=== PATIENT | female | born 1975 | race Caucasian/White ===

== ENCOUNTER 2016-10-12 14:12 | Inpatient (IN) | payer OTHER, MEDICAID ==
[2016-10-12 19:37] LABS: BASOPHILS % (AUTO) 0.6 % (0.2-1.0); EOSINOPHILS # (AUTO) 0.1 x10^3/uL (0.0-0.2); EOSINOPHILS % (AUTO) 0.8 % (0.9-2.9); HEMATOCRIT 40.9 % (36.0-47.0); HEMOGLOBIN 14.2 g/dL (12.0-16.0); LYMPHOCYTES # (AUTO) 2.7 X10^3/uL (1.3-2.9); MEAN CORPUSCULAR HGB CONC 34.6 g/dL (33.0-35.0); MEAN CORPUSCULAR VOLUME 98.2 fL (80.0-100.0); MEAN PLATELET VOLUME 8.6 fL (7.4-11.0); MONOCYTES # (AUTO) 0.5 x10^3/uL (0.3-0.8); MONOCYTES % (AUTO) 6.1 % (0.0-13.0); NEUTROPHILS # (AUTO) 4.4 x10^3/uL (2.2-4.8); NEUTROPHILS % (AUTO) 57.5 % (42.0-75.0); PLATELET COUNT 226 X10^3/uL (150.0-450.0); RED BLOOD COUNT 4.16 X10^6/uL (3.5-5.4); RED CELL DISTRIBUTION WIDTH 14.4 % (11.6-16.5); WHITE BLOOD COUNT 7.6 X10^3/uL (3.6-10.0)
[2016-10-12 20:00] LABS: ALANINE AMINOTRANSFERASE 29 Units/L (12-78); ALBUMIN 3.5 g/dL (3.4-5.0); ALKALINE PHOSPHATASE 115 Units/L (46-116); ASPARTATE AMINO TRANSFERASE 10 Units/L (15-37); BLOOD UREA NITROGEN 13 mg/dL (7-18); CALCIUM 8.9 mg/dL (8.5-10.1); CARBON DIOXIDE 29.9 mmol/L (21-32); CHLORIDE 108 mmol/L (98-107); CKMB % 1.8 % (<4); COR NA(FOR HYPERGLY) 145 mmol/L (136-145); CREATINE KINASE 55 Units/L (26-192); CREATINE KINASE MB < 1.0 ng/mL (0-4.0); CREATININE 0.82 mg/dL (0.55-1.02); GLUCOSE 121 mg/dL (65-99); SODIUM 144 mmol/L (136-145); TOTAL PROTEIN 7.3 g/dL (6.4-8.2); TROPONIN I < 0.02 ng/mL (0-1.5); eGFR BLACK RACES > 60 (>60); eGFR NON BLACK RACES > 60 (>60)
[2016-10-12 20:45] VITALS: BMI 46.0
[2016-10-12 20:54] LABS: BILIRUBIN,URINE NEGATIVE (NEGATIVE); BLOOD/HEMOGLOBIN,URINE NEGATIVE (NEGATIVE); GLUCOSE, URINE NEGATIVE (NEGATIVE); KETONES,URINE NEGATIVE (NEGATIVE); LEUKOCYTE ESTERASE ,URINE NEGATIVE (NEGATIVE); NITRITES,URINE NEGATIVE (NEGATIVE); PROTEIN,URINE NEGATIVE (NEGATIVE); UROBILINOGEN,URINE NORMAL (NORMAL)
[2016-10-12 21:28] LABS: AMORPHOUS SEDIMENT,UR TRACE /HPF (NEGATIVE); APPEARANCE,URINE CLEAR (CLEAR); BACTERIA,URINE TRACE /HPF (NEGATIVE); COLOR,URINE YELLOW (YELLOW); RBC,URINE 0-1 /HPF (NEGATIVE); SQUAMOUS EPITHELIAL CELL,UR FEW /HPF (NEGATIVE)
[2016-10-12] MEDS: DILAUDID INJ IVP PRN (21:55)
[2016-10-12] MEDS ORDERED: SOMA TAB 350 MG PO PRN (22:11)
[2016-10-12] MEDS ORDERED: NITROSTAT SL PRN (22:11)
[2016-10-12] MEDS ORDERED: AMBIEN PO PRN (22:11)
[2016-10-12] MEDS ORDERED: VOLTAREN 1 % GEL MULTI DOSE TUBE TOP PRN (22:11)
[2016-10-12] MEDS ORDERED: LEVETIRACETAM 750 MG PO SCH (22:15)
[2016-10-12] MEDS ORDERED: DIVALPROEX SODIUM 500 MG PO SCH (22:15)
--- NOTE | 2016-10-12 22:21 | DR.H&P ---
H&P - History & Physical for Day of: H&P Date: 10/12/16 - Chief Complaint Chief Complaint: Swelling, Weight gain 8lbs in 1 week, Abd pain, Unable to void. - Allergies Allergies/Adverse Reactions: Allergies Allergy/AdvReac Type Severity Reaction Status Date / Time MS Davisithromycin Allergy Verified 10/12/16 18:53 - History of Present Illness History of Present Illness: The patient is a 41yo WF who presents to [facility] with complaint of increasing edema and having not voided since Wednesday. States she has gained 8lbs since last week when she was in the office. States she has been taking Lasix 60mg daily for last 2 days. States she is not drinking much. States that she went to ED at [facility] Wednesday morning after having fell down the doorsteps at home after having either a seizure or fainting. States she is having abdominal pain and is tender in lower abdomen. Does complain of chest discomfort and is to be scheduled for an EGD. - Past Medical History Past Medical History: Anxiety, Arthritis, CHF, Coronary Artery Disease, Dyslipidemia, GERD, Hyperthyroidism, Seizures Additional Medical History: Multiple DVTs - Past Surgical History Surgical History: Cholecystectomy Additional Surgical History: Cardiac Catherization - Family History Family Medical History: Cancer, [place], Heart Failure, Hypertension - Social History Does patient currently use any type of tobacco product: Yes Have you used tobacco products in the last 12 months: Yes Type of Tobacco Use: Cigarettes Alcohol Use: None Drug Use: Prescription Drugs - Medications Home Medications: Diclofenac Sodium (Topical) [Voltaren] 1 % TOP TID PRN 10/12/16 [History Confirmed 10/12/16] Nitroglycerin Sublingual [NITROSTAT SUBLING TAB 0.4 MG *] 0.4 mg SL PRN PRN [History Confirmed 10/12/16] Ranitidine HCl [Zantac] 300 mg PO BID 10/12/16 [History Confirmed 10/12/16] Rivaroxaban [Xarelto] 20 mg PO DAILY 10/12/16 [History Confirmed 10/12/16] - Review of Systems Constitutional: Weakness, Malaise Eyes: No Symptoms Reported ENT: No Symptoms Reported Respiratory: Shortness of Breath Cardiovascular: Chest Pain, Edema Gastrointestinal: Abdominal Pain Genitourinary: Dysuria, Retention Musculoskeletal: Arm Pain, Back Pain, Leg Pain, Neck Pain Skin: No Symptoms Reported Neurological: No Symptoms Reported - Physical Exam Vital Signs: Temperature 98.2 F Pulse Rate [Right Brachial] 97 Blood Pressure [Left Arm] 130/63 Blood Pressure [Right Arm] 136/66 Blood Pressure 130/63 O2 Sat by Pulse Oximetry 95 Oriented: Normal Eyes: Normal Ear: Normal Nose: Normal Throat: Normal Respiratory: Clear Throughout Cardiovascular: Normal, Edema (2+ generalized edema) : Dysuria Auscultation: Bowel Sounds: Normal Palpation: Normal Tenderness: Suprapubic, Moderate Skin: Normal, Ecchymosis (left hip) Musculoskeletal: Leg, Back:Lumbar, Tender Psychiatric: Normal Mood Description: Calm Affect: Normal Speech Pattern: Clear - Assessment/Plan (1) Edema Qualifiers: Edema type: E Malnutrition edema type: M Trimester: T Status: Acute Plan: CXR, Lasix IV, Monitor I&O (2) Urinary retention Status: Acute Plan: Noriega, UA, UA C&S (3) Chest discomfort Status: Acute Plan: Cardiac enzymes (4) Abdominal pain Qualifiers: Abdominal location: lower abdomen, unspecified Qualified Code(s): R10.30 - Lower abdominal pain, unspecified Status: Acute Plan: Noriega cath, Labs (5) Hypertension Qualifiers: Hypertension type: essential hypertension Qualified Code(s): I10 - Essential (primary) hypertension Status: Chronic Plan: Monitor BP, Meds as indicated (6) Vertigo Status: Acute Plan: CT Head
--- NOTE | 2016-10-12 22:38 | CT ---
HISTORY: Syncope with head injury Study: CT brain without contrast Comparison: None Technique: Multiple axial images of the brain were obtained from the skull base to the vertex witho ut administration of IV contrast. AEC was utilized. Findings: No acute intraparenchymal hemorrhage or mass can be identified. No extra-axial fluid collections ar e seen. No alteration in the attenuation of the brain parenchyma can be identified to suggest acute or subacute ischemic change. The ventricular system is symmetric and nondilated. The extracranial structures are grossly unremarkable. IMPRESSION: No acute intracranial process can be identified. Reported By:
--- NOTE | 2016-10-12 22:39 | RAD ---
HISTORY: Syncope, edema Study: Single-view chest Comparison: February 11, 2016 Findings: The trachea is midline. The cardiac silhouette is unremarkable. The lungs are clear without focal mass or consolidation. There is no effusion or pneumothorax. The bony thorax is grossly unremarkab le. IMPRESSION: No acute cardiopulmonary disease. Reported By:
[2016-10-12] MEDS: LASIX IVP SCH (23:16)
[2016-10-12] MEDS: DEPAKOTE ER PO SCH (23:17)
[2016-10-12] MEDS: PRAVACHOL PO SCH (23:17)
[2016-10-12] MEDS: DILANTIN CAP 100 MG EXT REL PO SCH (23:17)
[2016-10-12] MEDS: KEPPRA TAB 500 MG PO SCH (23:17)
[2016-10-12] MEDS: LOPRESSOR TAB 50 MG PO SCH (23:17)
[2016-10-13 01:12] LABS: CKMB % 1.1 % (<4); CREATINE KINASE 93 Units/L (26-192); CREATINE KINASE MB < 1.0 ng/mL (0-4.0); TROPONIN I < 0.02 ng/mL (0-1.5)
[2016-10-13] MEDS: DILAUDID INJ IVP PRN ×4 (03:27→19:23)
[2016-10-13] MEDS: PHENERGAN TAB 25 MG PO PRN ×4 (03:27→20:16)
[2016-10-13] MEDS: DILANTIN CAP 100 MG EXT REL PO SCH ×3 (05:33→22:11)
[2016-10-13] MEDS: KLONOPIN TAB 1 MG PO SCH ×3 (05:33→22:12)
[2016-10-13] MEDS ORDERED: K-LYTE EFFERVESCENT PO PRN (05:49)
[2016-10-13] MEDS ORDERED: K-DUR TAB 20 MEQ PO PRN (05:49)
[2016-10-13] MEDS ORDERED: POTASSIUM CHLORIDE LIQ 20 MEQ UDC PO PRN (05:49)
[2016-10-13] MEDS ORDERED: K-RIDER 10 MEQ/NS 100 ML 10 MEQ/100 ML BAG IV PRN (05:49)
[2016-10-13] MEDS: CARAFATE PO SCH ×4 (08:27→20:15)
[2016-10-13] MEDS: PriLOSEC PO SCH (08:28)
[2016-10-13] MEDS: TOPAMAX PO SCH ×2 (08:28→20:18)
[2016-10-13] MEDS: PRAVACHOL PO SCH (08:29)
[2016-10-13] MEDS: XARELTO PO SCH (08:29)
[2016-10-13] MEDS: NEURONTIN TAB 600 MG PO SCH ×4 (08:29→20:17)
[2016-10-13] MEDS: ESTRACE PO SCH (08:29)
[2016-10-13] MEDS: KEPPRA TAB 500 MG PO SCH ×2 (08:30→20:15)
[2016-10-13] MEDS: DEPAKOTE ER PO SCH ×2 (08:31→20:17)
[2016-10-13] MEDS: LOPRESSOR TAB 50 MG PO SCH ×2 (08:31→20:19)
[2016-10-13] MEDS: CLARITIN PO SCH (08:31)
[2016-10-13] MEDS: COREG TAB 25 MG PO SCH ×2 (08:31→20:18)
[2016-10-13] MEDS: LASIX IVP SCH ×2 (08:33→20:19)
[2016-10-13 08:38] LABS: CKMB % 1.4 % (<4); CREATINE KINASE 72 Units/L (26-192); CREATINE KINASE MB < 1.0 ng/mL (0-4.0); TROPONIN I < 0.02 ng/mL (0-1.5)
[2016-10-13] MEDS ORDERED: TOPIRAMATE PO SCH (09:00)
[2016-10-13] MEDS ORDERED: PATIENT'S HOME MEDICATION (Rivaroxaban [Xarelto] 20 MG) PO SCH (09:00)
[2016-10-13] MEDS ORDERED: OMEPRAZOLE PO SCH (09:00)
[2016-10-13] MEDS ORDERED: PATIENT'S HOME MEDICATION (Estradiol [Estrace] 2 MG) PO SCH (09:00)
--- NOTE | 2016-10-13 14:11 | PCM.PROG ---
Progress Note - Progress Note for Day of Date: 10/13/16 - Subjective Subjective: 41WF ADMITTED ONE DAY AGO WITH SEVERE URINARY RETENTION REQUIRING SÁNCHEZ CATH. PT HAS PMH OF L SPINE DDD WITH SURGICAL REPAIR OF DISK HERNIATION.PT CO LOWER BACK PAIN AND LOWER EXTREMITY WEAKNESS SINCE A FALL PRIOR WEEKEND. PLAN TO OBTAIN MRI L SPINE W/O CAUDA EQUINA, WILL CONTINUE HOME MEDS, AM LABS AND BP CONTROL - Past Medical Family Social History Past Med/Fam/Surg Hx: No changes since H&P Allergies: Allergies MS Clarithromycin Allergy (Verified 10/12/16 18:53) - Review of Systems ROS: No change since H&P - Vital Signs and I&O's Vital Signs: Temperature 97.8 F Pulse Rate [Left Brachial] 64 Pulse Rate [Right Brachial] 65 Respiratory Rate 20 Blood Pressure [Left Arm] 93/58 Blood Pressure [Right Arm] 106/61 Blood Pressure 130/63 O2 Sat by Pulse Oximetry 98 Intake and Output: Intake & Output 10/11/16 10/12/16 10/13/16 10/14/16 11:59 11:59 11:59 11:59 Intake Total 20 Output Total 1000 Balance -980 - Physical Exam Oriented: Normal Eyes: Normal Ear: Normal Nose: Normal Throat: Normal Respiratory: Diminished Cardiovascular: Normal, Edema (2+ generalized edema) : Dysuria Auscultation: Bowel Sounds: Normal Tenderness: Suprapubic, Moderate Skin: Normal, Ecchymosis (left hip) Musculoskeletal: Leg, Back:Lumbar, Tender (CERVICAL SPINE AND LUMBAR SPINE TENDERNESS) Psychiatric: Normal Mood Description: Calm Affect: Normal Speech Pattern: Clear, Appropriate - Laboratory and Diagnostics Result Diagrams: 10/12/16 19:10 10/12/16 19:10 Labs: 10/12/16 20:43 Urine,Clean Catch Urine Culture - Preliminary Laboratory WBC 7.6 X10^3/uL (3.6-10.0) 10/12/16 19:10 RBC 4.16 X10^6/uL (3.5-5.4) 10/12/16 19:10 Hgb 14.2 g/dL (12.0-16.0) 10/12/16 19:10 Hct 40.9 % (36.0-47.0) 10/12/16 19:10 MCV 98.2 fL (80.0-100.0) 10/12/16 19:10 MCH 34.0 pg (27.0-34.0) 10/12/16 19:10 MCHC 34.6 g/dL (33.0-35.0) 10/12/16 19:10 RDW 14.4 % (11.6-16.5) 10/12/16 19:10 Plt Count 226 X10^3/uL (150.0-450.0) 10/12/16 19:10 MPV 8.6 fL (7.4-11.0) 10/12/16 19:10 Neut % 57.5 % (42.0-75.0) 10/12/16 19:10 Lymph % 35.0 % (21.0-51.0) 10/12/16 19:10 [place] % 6.1 % (0.0-13.0) 10/12/16 19:10 Eos % 0.8 % (0.9-2.9) L 10/12/16 19:10 Baso % 0.6 % (0.2-1.0) 10/12/16 19:10 Neut # 4.4 x10^3/uL (2.2-4.8) 10/12/16 19:10 Lymph # 2.7 X10^3/uL (1.3-2.9) 10/12/16 19:10 [place] # 0.5 x10^3/uL (0.3-0.8) 10/12/16 19:10 Eos # 0.1 x10^3/uL (0.0-0.2) 10/12/16 19:10 Baso # 0.0 X10^3/uL (0.0-0.1) 10/12/16 19:10 Absolute Nucleated RBC 0.2 /100WBC 10/12/16 19:10 Sodium 144 mmol/L (136-145) 10/12/16 19:10 Corrected Sodium 145 mmol/L (136-145) 10/12/16 19:10 Potassium 3.2 mmol/L (3.5-5.1) L 10/12/16 19:10 Chloride 108 mmol/L (98-107) H 10/12/16 19:10 Carbon Dioxide 29.9 mmol/L (21-32) 10/12/16 19:10 BUN 13 mg/dL (7-18) 10/12/16 19:10 Creatinine 0.82 mg/dL (0.55-1.02) 10/12/16 19:10 Est GFR (MDRD) Af Amer > 60 (>60) 10/12/16 19:10 Est GFR (MDRD) Non-Af > 60 (>60) 10/12/16 19:10 Glucose 121 mg/dL (65-99) H 10/12/16 19:10 Calcium 8.9 mg/dL (8.5-10.1) 10/12/16 19:10 Corrected Calcium TNP 10/12/16 19:10 Total Bilirubin 0.20 mg/dL (0.2-1.0) 10/12/16 19:10 AST 10 Units/L (15-37) L 10/12/16 19:10 ALT 29 Units/L (12-78) 10/12/16 19:10 Alkaline Phosphatase 115 Units/L (46-116) 10/12/16 19:10 Creatine Kinase 72 Units/L (26-192) 10/13/16 07:30 CK-MB (CK-2) < 1.0 ng/mL (0-4.0) 10/13/16 07:30 CK/CKMB % Calc 1.4 % (<4) 10/13/16 07:30 Troponin I < 0.02 ng/mL (0-1.5) 10/13/16 07:30 Total Protein 7.3 g/dL (6.4-8.2) 10/12/16 19:10 Albumin 3.5 g/dL (3.4-5.0) 10/12/16 19:10 Globulin 3.8 g/dL (2.5-4.5) 10/12/16 19:10 Albumin/Globulin Ratio 0.9 Ratio (1.1-2.1) L 10/12/16 19:10 Specimen Type Catherized urine 10/12/16 20:43 Urine Color Yellow (YELLOW) 10/12/16 20:43 Urine Appearance Clear (CLEAR) 10/12/16 20:43 Urine pH 6.0 (5.0 - 8.0) 10/12/16 20:43 Ur Specific [place] 1.020 (1.000-1.030) 10/12/16 20:43 Urine Protein Negative (NEGATIVE) 10/12/16 20:43 Urine Glucose (UA) Negative (NEGATIVE) 10/12/16 20:43 Urine Ketones Negative (NEGATIVE) 10/12/16 20:43 Urine Occult Blood Negative (NEGATIVE) 10/12/16 20:43 Urine Nitrite Negative (NEGATIVE) 10/12/16 20:43 Urine Bilirubin Negative (NEGATIVE) 10/12/16 20:43 Urine Urobilinogen Normal (NORMAL) 10/12/16 20:43 Ur Leukocyte Esterase Negative (NEGATIVE) 10/12/16 20:43 Urine RBC 0-1 /HPF (NEGATIVE) 10/12/16 20:43 Urine WBC 0-1 /HPF (NEGATIVE) 10/12/16 20:43 Ur Squamous Epith Cells Few /HPF (NEGATIVE) 10/12/16 20:43 Amorphous Sediment Trace /HPF (NEGATIVE) 10/12/16 20:43 Urine Bacteria Trace /HPF (NEGATIVE) 10/12/16 20:43 Ur Culture Indicated? No/not indicated 10/12/16 20:43 - Plan (1) Urinary retention Status: Acute Plan: Sánchez, UA, UA C&S. I & O'S (2) Degenerative arthritis of lumbar spine Status: Chronic Qualifiers: Spinal osteoarthritis complication: with radiculopathy Qualified Code(s): M47.26 - Other spondylosis with radiculopathy, lumbar region Plan: PAIN CONTROL, MRI PENDING (3) Cervical spine degeneration Status: Acute Qualifiers: Spinal osteoarthritis complication: S (4) Edema Status: Acute Qualifiers: Edema type: E Malnutrition edema type: M Trimester: T Plan: CXR, Lasix IV, Monitor I&O (5) Uncontrolled hypertension Status: Acute (6) GERD (gastroesophageal reflux disease) Status: Chronic Qualifiers: Esophagitis presence: E (7) History of [place] (myocardial infarction) Status: Chronic (8) Hypertension Status: Chronic Qualifiers: Hypertension type: essential hypertension Qualified Code(s): I10 - Essential (primary) hypertension Plan: Monitor BP, Meds as indicated (9) Seizure Status: Chronic
[2016-10-13] MEDS: ELAVIL PO SCH (20:15)
[2016-10-13] MEDS ORDERED: AMITRIPTYLINE HCL 100 MG PO SCH (21:00)
[2016-10-14] MEDS: KLONOPIN TAB 1 MG PO SCH ×3 (05:21→21:05)
[2016-10-14] MEDS: DILANTIN CAP 100 MG EXT REL PO SCH ×3 (05:21→21:05)
[2016-10-14] MEDS: PHENERGAN TAB 25 MG PO PRN (05:21)
[2016-10-14] MEDS: DILAUDID INJ IVP PRN ×4 (05:23→21:05)
[2016-10-14 06:14] LABS: BASOPHILS % (AUTO) 0.4 % (0.2-1.0); EOSINOPHILS # (AUTO) 0.1 x10^3/uL (0.0-0.2); EOSINOPHILS % (AUTO) 0.9 % (0.9-2.9); HEMATOCRIT 41.4 % (36.0-47.0); HEMOGLOBIN 14.3 g/dL (12.0-16.0); LYMPHOCYTES % (AUTO) 27.6 % (21.0-51.0); MEAN CORPUSCULAR HEMOGLOBIN 34.1 pg (27.0-34.0); MEAN CORPUSCULAR HGB CONC 34.6 g/dL (33.0-35.0); MEAN CORPUSCULAR VOLUME 98.6 fL (80.0-100.0); MEAN PLATELET VOLUME 8.7 fL (7.4-11.0); MONOCYTES # (AUTO) 0.5 x10^3/uL (0.3-0.8); MONOCYTES % (AUTO) 6.7 % (0.0-13.0); NEUTROPHILS # (AUTO) 4.6 x10^3/uL (2.2-4.8); NEUTROPHILS % (AUTO) 64.4 % (42.0-75.0); PLATELET COUNT 198 X10^3/uL (150.0-450.0); RED CELL DISTRIBUTION WIDTH 14.4 % (11.6-16.5); WHITE BLOOD COUNT 7.2 X10^3/uL (3.6-10.0)
[2016-10-14 06:26] LABS: ALANINE AMINOTRANSFERASE 27 Units/L (12-78); ALBUMIN 3.4 g/dL (3.4-5.0); ALKALINE PHOSPHATASE 118 Units/L (46-116); ASPARTATE AMINO TRANSFERASE 15 Units/L (15-37); BLOOD UREA NITROGEN 16 mg/dL (7-18); CALCIUM 8.6 mg/dL (8.5-10.1); CARBON DIOXIDE 26.6 mmol/L (21-32); CHLORIDE 107 mmol/L (98-107); CREATININE 0.77 mg/dL (0.55-1.02); GLUCOSE 99 mg/dL (65-99); SODIUM 143 mmol/L (136-145); TOTAL PROTEIN 7.3 g/dL (6.4-8.2); eGFR BLACK RACES > 60 (>60); eGFR NON BLACK RACES > 60 (>60)
[2016-10-14] MEDS: PRAVACHOL PO SCH (09:25)
[2016-10-14] MEDS: TOPAMAX PO SCH ×2 (09:25→21:04)
[2016-10-14] MEDS: LOPRESSOR TAB 50 MG PO SCH ×2 (09:27→21:04)
[2016-10-14] MEDS: ESTRACE PO SCH (09:27)
[2016-10-14] MEDS: KEPPRA TAB 500 MG PO SCH ×2 (09:27→21:03)
[2016-10-14] MEDS: COREG TAB 25 MG PO SCH ×2 (09:28→21:02)
[2016-10-14] MEDS: PriLOSEC PO SCH (09:29)
[2016-10-14] MEDS: CLARITIN PO SCH (09:29)
[2016-10-14] MEDS: XARELTO PO SCH (09:29)
[2016-10-14] MEDS: DEPAKOTE ER PO SCH ×2 (09:30→21:03)
[2016-10-14] MEDS: NEURONTIN TAB 600 MG PO SCH ×4 (09:30→21:04)
[2016-10-14] MEDS: CARAFATE PO SCH ×4 (09:30→21:02)
[2016-10-14] MEDS: LASIX IVP SCH ×2 (09:30→21:04)
--- NOTE | 2016-10-14 09:59 | MRI ---
HISTORY: Low back pain, bilateral lower extremity weakness Study: MRI lumbar spine without contrast Comparison: February 13, 2016 Technique: Multiplanar multi-sequence MRI of the lumbar spine was obtained. Sagittal T1, sagittal T 2, and stir weighted images, axial T1, and axial T2 images were obtained. Findings: The patient is status post L4-5 posterior fusion with hardware present. The hardware creates some ar tifact. There is a disc spacer at L4-5. The lumbar spine demonstrates normal alignment with the expe cted signal characteristics of the bone marrow. The conus of the cord terminates normally. T12 -- L1: No evidence for compressive disc disease. The neural foramina are patent. The joints are normal. L1 -- L2: No evidence for compressive disc disease. The neural foramina are patent. The joints are n ormal. L2 -- L3: No evidence for compressive disc disease. The neural foramina are patent. Mild bilateral f acet arthropathy is present. L3 -- L4: Concentric disk bulging effaces the thecal sac and contributes along with bilateral facet arthropathy to mild lateral recess narrowing bilaterally. L4 -- L5: Status post fusion with hardware present. The neural foramina are patent. L5 -- S1: Minimal broad-based disk bulging extends slightly more to the right than the left where it abuts and causes minimal displacement of the right S1 nerve root and mild lateral recess narrowing on the right. The left neural foramen is patent. Mild facet arthropathy is present. IMPRESSION: As above Reported By:
--- NOTE | 2016-10-14 13:43 | PCM.PROG ---
Addendum entered and electronically signed by LUÍS APODACA 10/14/16 13:55: CORRECTION TO PRIOR ENTRY PLAN TO CT ABD/PELVIS STOOL STUDIES NO US Original Note: Progress Note - Progress Note for Day of Date: 10/14/16 - Subjective Subjective: 41WF ADMITTED 10/12/2016 WITH SEVERE URINARY RETENTION REQUIRING SÁNCHEZ CATH. PT HAS PMH OF L SPINE DDD WITH SURGICAL REPAIR OF DISK HERNIATION.PT CO LOWER BACK PAIN AND LOWER EXTREMITY WEAKNESS SINCE A FALL PRIOR WEEKEND. PT HAD MRI C AND L SPINE, C SPINE REPORT PENDING. DISCUSSED FINDING WITH L SPINE MRI WITH PT AND SPOUSE. PT HAS NEW CO UPPER ABDOMINAL CRAMPING. PT HAD CT SCAN ABD/PELVIS ON ADMISSION. PT SÁNCHEZ D/C'S THIS AM AND PT HAS NOT REPORTED VOIDING SINCE. PLAN TO US Q AM, NPO AFTER MIDNIGHT, PPI THERAPY AND NAUSEA CONTROL, REINSERT SÁNCHEZ NEEDED FOR CONTINUED RETENTION. PT VERY BELLIGERENT WITH MEDICAL AND NURSING STAFF, SCREAMING STATING SHE "WAS LEAVING". PT INFORMED BY NURSE SHE WAS NOT BEING DISCHARGED AT THIS TIME SHE WOULD HAVE TO SIGN AN AMA. ENCOURAGED PT TO CONTINUE WITH MEDICAL THERAPY, WILL CONTINUE CURRENT PLAN OF CARE, DISCUSSED NEED FOR FUTURE EDG DUE TO GASTRIC PAIN - Past Medical Family Social History Past Med/Fam/Surg Hx: No changes since H&P Allergies: Allergies MS Clarithromycin Allergy (Verified 10/12/16 18:53) - Review of Systems ROS: Changes notes (describe) (UPPER ABDOMINAL PAIN, CRAMPING) - Vital Signs and I&O's Vital Signs: Temperature 98.1 F Pulse Rate [Left Brachial] 78 Pulse Rate [Right Brachial] 65 Respiratory Rate 16 Blood Pressure [Left Arm] 101/66 Blood Pressure [Right Arm] 106/61 Blood Pressure 130/63 O2 Sat by Pulse Oximetry 93 Intake and Output: Intake & Output 10/12/16 10/13/16 10/14/16 10/15/16 11:59 11:59 11:59 11:59 Intake Total 20 600 Output Total 1000 2475 Balance -877 -5156 - Physical Exam Oriented: Normal Eyes: Normal Ear: Normal Nose: Normal Throat: Normal Respiratory: Diminished Cardiovascular: Normal, Edema (BILATERAL TRACE EDEMA) : Dysuria Auscultation: Bowel Sounds: Normal Tenderness: Diffuse Skin: Normal, Ecchymosis (left hip) Musculoskeletal: Leg, Back:Lumbar, Tender (CERVICAL SPINE AND LUMBAR SPINE TENDERNESS) Psychiatric: Normal Mood Description: Calm Affect: Normal Speech Pattern: Clear, Appropriate - Laboratory and Diagnostics Result Diagrams: 10/14/16 05:30 10/14/16 05:30 Labs: 10/12/16 19:40 Blood Blood Culture - Preliminary 10/12/16 19:10 Blood Blood Culture - Preliminary 10/12/16 20:43 Urine,Clean Catch Urine Culture - Final Laboratory WBC 7.2 X10^3/uL (3.6-10.0) 10/14/16 05:30 RBC 4.20 X10^6/uL (3.5-5.4) 10/14/16 05:30 Hgb 14.3 g/dL (12.0-16.0) 10/14/16 05:30 Hct 41.4 % (36.0-47.0) 10/14/16 05:30 MCV 98.6 fL (80.0-100.0) 10/14/16 05:30 MCH 34.1 pg (27.0-34.0) H 10/14/16 05:30 MCHC 34.6 g/dL (33.0-35.0) 10/14/16 05:30 RDW 14.4 % (11.6-16.5) 10/14/16 05:30 Plt Count 198 X10^3/uL (150.0-450.0) 10/14/16 05:30 MPV 8.7 fL (7.4-11.0) 10/14/16 05:30 Neut % 64.4 % (42.0-75.0) 10/14/16 05:30 Lymph % 27.6 % (21.0-51.0) 10/14/16 05:30 [place] % 6.7 % (0.0-13.0) 10/14/16 05:30 Eos % 0.9 % (0.9-2.9) 10/14/16 05:30 Baso % 0.4 % (0.2-1.0) 10/14/16 05:30 Neut # 4.6 x10^3/uL (2.2-4.8) 10/14/16 05:30 Lymph # 2.0 X10^3/uL (1.3-2.9) 10/14/16 05:30 [place] # 0.5 x10^3/uL (0.3-0.8) 10/14/16 05:30 Eos # 0.1 x10^3/uL (0.0-0.2) 10/14/16 05:30 Baso # 0.0 X10^3/uL (0.0-0.1) 10/14/16 05:30 Absolute Nucleated RBC 0.1 /100WBC 10/14/16 05:30 Sodium 143 mmol/L (136-145) 10/14/16 05:30 Corrected Sodium TNP 10/14/16 05:30 Potassium 4.4 mmol/L (3.5-5.1) 10/14/16 05:30 Chloride 107 mmol/L (98-107) 10/14/16 05:30 Carbon Dioxide 26.6 mmol/L (21-32) 10/14/16 05:30 BUN 16 mg/dL (7-18) 10/14/16 05:30 Creatinine 0.77 mg/dL (0.55-1.02) 10/14/16 05:30 Est GFR (MDRD) Af Amer > 60 (>60) 10/14/16 05:30 Est GFR (MDRD) Non-Af > 60 (>60) 10/14/16 05:30 Glucose 99 mg/dL (65-99) 10/14/16 05:30 Calcium 8.6 mg/dL (8.5-10.1) 10/14/16 05:30 Corrected Calcium TNP 10/14/16 05:30 Total Bilirubin 0.20 mg/dL (0.2-1.0) 10/14/16 05:30 AST 15 Units/L (15-37) 10/14/16 05:30 ALT 27 Units/L (12-78) 10/14/16 05:30 Alkaline Phosphatase 118 Units/L (46-116) H 10/14/16 05:30 Creatine Kinase 72 Units/L (26-192) 10/13/16 07:30 CK-MB (CK-2) < 1.0 ng/mL (0-4.0) 10/13/16 07:30 CK/CKMB % Calc 1.4 % (<4) 10/13/16 07:30 Troponin I < 0.02 ng/mL (0-1.5) 10/13/16 07:30 Total Protein 7.3 g/dL (6.4-8.2) 10/14/16 05:30 Albumin 3.4 g/dL (3.4-5.0) 10/14/16 05:30 Globulin 3.9 g/dL (2.5-4.5) 10/14/16 05:30 Albumin/Globulin Ratio 0.9 Ratio (1.1-2.1) L 10/14/16 05:30 Specimen Type Catherized urine 10/12/16 20:43 Urine Color Yellow (YELLOW) 10/12/16 20:43 Urine Appearance Clear (CLEAR) 10/12/16 20:43 Urine pH 6.0 (5.0 - 8.0) 10/12/16 20:43 Ur Specific [place] 1.020 (1.000-1.030) 10/12/16 20:43 Urine Protein Negative (NEGATIVE) 10/12/16 20:43 Urine Glucose (UA) Negative (NEGATIVE) 10/12/16 20:43 Urine Ketones Negative (NEGATIVE) 10/12/16 20:43 Urine Occult Blood Negative (NEGATIVE) 10/12/16 20:43 Urine Nitrite Negative (NEGATIVE) 10/12/16 20:43 Urine Bilirubin Negative (NEGATIVE) 10/12/16 20:43 Urine Urobilinogen Normal (NORMAL) 10/12/16 20:43 Ur Leukocyte Esterase Negative (NEGATIVE) 10/12/16 20:43 Urine RBC 0-1 /HPF (NEGATIVE) 10/12/16 20:43 Urine WBC 0-1 /HPF (NEGATIVE) 10/12/16 20:43 Ur Squamous Epith Cells Few /HPF (NEGATIVE) 10/12/16 20:43 Amorphous Sediment Trace /HPF (NEGATIVE) 10/12/16 20:43 Urine Bacteria Trace /HPF (NEGATIVE) 10/12/16 20:43 Ur Culture Indicated? No/not indicated 10/12/16 20:43 - Plan (1) Urinary retention Status: Acute Plan: UA NEGATIVE FOR ACUTE INFECTION, BLADDER TRAINING, D/C SÁNCHEZ. MONITOR I & O'S (2) Degenerative arthritis of lumbar spine Status: Chronic Qualifiers: Spinal osteoarthritis complication: with radiculopathy Qualified Code(s): M47.26 - Other spondylosis with radiculopathy, lumbar region Plan: PAIN CONTROL, MRI RESULTS REVIEWED DISCUSSED NEED FOR FOLLOW UP WITH NEUROSURGEON DR DURAN (3) Cervical spine degeneration Status: Acute Qualifiers: Spinal osteoarthritis complication: S Plan: MRI PENDING (4) Edema Status: Acute Qualifiers: Edema type: E Malnutrition edema type: M Trimester: T Plan: IMPROVED, CONTINUE I & OS (5) Uncontrolled hypertension Status: Inactive (6) GERD (gastroesophageal reflux disease) Status: Chronic Qualifiers: Esophagitis presence: E Plan: PPI, GB US Q AM. NAUSEA CONTROL, DISCUSSED EGD (7) History of [place] (myocardial infarction) Status: Chronic (8) Hypertension Status: Chronic Qualifiers: Hypertension type: essential hypertension Qualified Code(s): I10 - Essential (primary) hypertension Plan: Monitor BP, Meds as indicated (9) Seizure Status: Chronic Plan: SEIZURE PRECAUTIONS
[2016-10-14 14:19] LABS: BILIRUBIN,URINE NEGATIVE (NEGATIVE); BLOOD/HEMOGLOBIN,URINE 5+ (NEGATIVE); GLUCOSE, URINE NEGATIVE (NEGATIVE); KETONES,URINE NEGATIVE (NEGATIVE); LEUKOCYTE ESTERASE ,URINE NEGATIVE (NEGATIVE); NITRITES,URINE NEGATIVE (NEGATIVE); PROTEIN,URINE 1+ (NEGATIVE); UROBILINOGEN,URINE NORMAL (NORMAL)
[2016-10-14 14:31] LABS: APPEARANCE,URINE HAZY (CLEAR); BACTERIA,URINE TRACE /HPF (NEGATIVE); COLOR,URINE YELLOW (YELLOW); RBC,URINE 25-30 /HPF (NEGATIVE); SQUAMOUS EPITHELIAL CELL,UR RARE /HPF (NEGATIVE)
[2016-10-14] MEDS ORDERED: NS 100 ML IV 100 ML IV ONE (16:26)
--- NOTE | 2016-10-14 17:56 | CT ---
CT abdomen and pelvis with contrast Indication: Diffuse abdominal pain and urinary retention. Comparison: February 11, 2016 CT. Technique: Helical images through the abdomen and pelvis after IV and oral contrast. Coronal and sag ittal reformats provided. Findings: Review of bone windows shows no destructive osseous lesion. Spine hardware noted. Limited images through lower chest show dependent atelectasis and basilar scarring. Abdomen: Gallbladder is absent. The liver, spleen, pancreas, stomach and small bowel are normal. Con trast enters the distal small bowel without obstruction. No acute colonic abnormality seen. Appendix is normal. There is nonobstructing left lower pole renal stone measuring 5 mm on axial image 34. Th is is unchanged from the prior. Bilateral adrenal adenomas are again noted, measuring low-density an d are unchanged in size from the prior. The left adrenal adenoma measures 2.2 cm maximally in the ri ght adrenal adenoma measures 1.5 cm maximally. Pelvis: Urinary bladder is collapsed and a Noriega catheter. The rectum is normal. Uterus is absent. N o adnexal region lesion seen. Impression: 1. Nonobstructing left lower pole renal stone. 2. Bilateral benign adrenal adenomas unchanged from the prior. 3. Bilateral patchy pulmonary opacities in the bases suggesting dependent atelectasis. Developing pn eumonia not completely excluded in the correct clinical setting. Reported By:
[2016-10-14] MEDS: ELAVIL PO SCH (21:03)
[2016-10-15] MEDS: PHENERGAN TAB 25 MG PO PRN (04:32)
[2016-10-15] MEDS: DILAUDID INJ IVP PRN ×2 (04:33→09:12)
[2016-10-15] MEDS: DILANTIN CAP 100 MG EXT REL PO SCH ×3 (05:11→21:57)
[2016-10-15] MEDS: KLONOPIN TAB 1 MG PO SCH ×3 (05:11→21:56)
[2016-10-15] MEDS: TOPAMAX PO SCH ×2 (08:02→21:56)
[2016-10-15] MEDS: DEPAKOTE ER PO SCH ×2 (08:02→21:53)
[2016-10-15] MEDS: PERCOCET TAB 5/325 MG PO PRN ×3 (08:02→22:13)
[2016-10-15] MEDS: CARAFATE PO SCH ×4 (08:02→21:51)
[2016-10-15] MEDS: LOPRESSOR TAB 50 MG PO SCH ×2 (08:02→21:56)
[2016-10-15] MEDS: NEURONTIN TAB 600 MG PO SCH ×4 (08:02→21:55)
[2016-10-15] MEDS: PRAVACHOL PO SCH (08:02)
[2016-10-15] MEDS: ESTRACE PO SCH (08:02)
[2016-10-15] MEDS: KEPPRA TAB 500 MG PO SCH ×2 (08:03→21:55)
[2016-10-15] MEDS: COREG TAB 25 MG PO SCH ×2 (08:03→21:53)
[2016-10-15] MEDS: XARELTO PO SCH (08:03)
[2016-10-15] MEDS: CLARITIN PO SCH (08:03)
[2016-10-15] MEDS: PriLOSEC PO SCH (08:03)
[2016-10-15] MEDS: LASIX IVP SCH ×2 (10:33→21:58)
[2016-10-15] MEDS: MILK OF MAGNESIA PO SCH ×2 (14:20→21:58)
[2016-10-15] MEDS ORDERED: ZOFRAN INJ 4 MG VIAL IVP PRN ×2 (18:59→19:01)
[2016-10-15] MEDS ORDERED: COLACE CAP 100 MG PO SCH (21:00)
[2016-10-15] MEDS: ELAVIL PO SCH (21:53)
[2016-10-16] MEDS: ESTRACE PO SCH (08:52)
[2016-10-16] MEDS: MILK OF MAGNESIA PO SCH (08:52)
[2016-10-16] MEDS: KEPPRA TAB 500 MG PO SCH (08:53)
[2016-10-16] MEDS ORDERED: LR 1000 ML IV 1,000 ML IV ONE (14:11)
[2016-10-16] MEDS ORDERED: DIPRIVAN VIAL 20 ML ONE (15:15)
[2016-10-16] MEDS ORDERED: XYLOCAINE 2 % (PLAIN) ONE (15:15)
[2016-10-16 15:23] VITALS: BP 97/52
== END 2016-10-16 17:43 | disposition home or self-care (01) | DRG 948 ==
LOC: MED/SURG 14:12 → UNDOADMOB 14:12 → MED/SURG 18:17 → OBSVTOIN 10-14 14:30
PROVIDERS: ADMIT Internal Medicine; ATTEND Internal Medicine
PROC: 0DB68ZX Excision of Stomach, Via Natural or Artificial Opening Endoscopic, Diagnostic (ICD-10-PCS; principal; 2016-10-16 15:15)
DX: R60.0 Localized edema (principal); R42 Dizziness and giddiness; I10 Essential (primary) hypertension; R63.5 Abnormal weight gain; I25.10 Atherosclerotic heart disease of native coronary artery without angina pectoris; E78.2 Mixed hyperlipidemia; K21.9 Gastro-esophageal reflux disease without esophagitis; F41.8 Other specified anxiety disorders; R33.8 Other retention of urine; R07.89 Other chest pain; R10.30 Lower abdominal pain, unspecified; M54.5 Low back pain; Z91.81 History of falling; M47.26 Other spondylosis with radiculopathy, lumbar region; I25.2 Old myocardial infarction; M50.30 Other cervical disc degeneration, unspecified cervical region; G40.89 Other seizures; K20.8 Other esophagitis; K44.9 Diaphragmatic hernia without obstruction or gangrene; K29.60 Other gastritis without bleeding; R26.89 Other abnormalities of gait and mobility
CPT/HCPCS: 36415; 70450; 71010; 72141; 72148; 74177; 80053; 81001; 82550; 82553; 84484; 85025; 87040; 87086; 94760; 97535; A4222; G8978; G8979; G8987; G8988; Q0169; A4217; G0378; J1940; J2001; J2405; J3490; J7120

== ENCOUNTER 2017-09-10 13:45 | Observation (INO) | payer OTHER, MEDICAID ==
[2017-09-10] MEDS ORDERED: NITROSTAT SL PRN (15:21)
--- NOTE | 2017-09-10 15:32 | DR.H&P ---
H&P - History & Physical for Day of: H&P Date: 09/10/17 - Chief Complaint Chief Complaint: Chest pain - Allergies Allergies/Adverse Reactions: Allergies Allergy/AdvReac Type Severity Reaction Status Date / Time clarithromycin Allergy Verified 10/16/16 13:14 - History of Present Illness History of Present Illness: The patient is a 41-year-old white female who presents to the clinic with complaints of chest pressure and pain. States that she went to the emergency room yesterday with chest pain. States that she was told her EKG was abnormal. Patient states they never multiple medications including nitroglycerin with minimal relief. As subsequently patient told him she felt better and was discharged. Patient states that she woke up at 4 AM this morning with chest pressure with pain radiating into the neck and face and down left arm. Stated the left arm did feel heavy and tingling. States that she had tingling to the left side of her face. Did still have a nitroglycerin patch on from the emergency room visit. Did take it off this morning. States that the symptoms started on Mother's Day and she's had increasing chest pressure with nausea and dyspnea. Does state that she's been using her oxygen at home. Upon review of medical records, patient did have a cardiac catheterization in 2013 with normal coronary arteries with no evidence of CAD. Echocardiogram in 2015 revealed EF in the 60 percentile. Did have mitral valve regurgitation., Mild. Patient had a regadenosin stress test in May 2016 which was normal with no evidence of perfusion or reperfusion. Patient will be admitted for observation. - Past Medical History Past Medical History: Anxiety, Arthritis, CHF, Coronary Artery Disease, Dyslipidemia, GERD, Hyperthyroidism, Seizures Additional Medical History: Multiple DVTs - Past Surgical History Surgical History: Cholecystectomy Additional Surgical History: Cardiac Catherization - Family History Family Medical History: Cancer, [place], Heart Failure, Hypertension - Social History Does patient currently use any type of tobacco product: Yes Have you used tobacco products in the last 12 months: Yes Type of Tobacco Use: Cigarettes Does any household member use tobacco: Yes Alcohol Use: None Drug Use: None - Review of Systems Constitutional: Malaise ENT: No Symptoms Reported Respiratory: Shortness of Breath, SOB with Excertion Cardiovascular: Chest Pain, Edema Gastrointestinal: Nausea Genitourinary: No Symptoms Reported Musculoskeletal: Neck Pain Skin: No Symptoms Reported Neurological: No Symptoms Reported - Physical Exam Vital Signs: Blood Pressure [Left Arm] 97/52 Blood Pressure [Right Arm] 95/60 Blood Pressure 97/52 Oriented: Normal Eyes: Normal Ear: Normal Nose: Normal Throat: Normal Respiratory: Clear Throughout Cardiovascular: Normal : Normal Auscultation: Bowel Sounds: Normal Palpation: Normal Tenderness: Normal Skin: Normal Musculoskeletal: Normal Psychiatric: Normal Mood Description: Calm Affect: Normal Speech Pattern: Clear - Assessment/Plan (1) Chest discomfort Status: Acute Plan: Cardiac enzymes, EKGs, Labs (2) Edema Status: Acute Plan: Labs
[2017-09-10] MEDS ORDERED: ECOTRIN TAB 325 MG PO ONE (16:33)
[2017-09-10 16:38] LABS: BASOPHILS # (AUTO) 0.1 X10^3/uL (0.0-0.1); BASOPHILS % (AUTO) 0.8 % (0.2-1.0); EOSINOPHILS # (AUTO) 0.1 x10^3/uL (0.0-0.2); EOSINOPHILS % (AUTO) 0.9 % (0.9-2.9); HEMATOCRIT 41.4 % (36.0-47.0); HEMOGLOBIN 14.4 g/dL (12.0-16.0); LYMPHOCYTES # (AUTO) 2.9 X10^3/uL (1.3-2.9); LYMPHOCYTES % (AUTO) 35.4 % (21.0-51.0); MEAN CORPUSCULAR HEMOGLOBIN 34.8 pg (27.0-34.0); MEAN CORPUSCULAR HGB CONC 34.7 g/dL (33.0-35.0); MEAN CORPUSCULAR VOLUME 100.1 fL (80.0-100.0); MEAN PLATELET VOLUME 8.5 fL (7.4-11.0); MONOCYTES # (AUTO) 0.5 x10^3/uL (0.3-0.8); MONOCYTES % (AUTO) 5.9 % (0.0-13.0); NEUTROPHILS # (AUTO) 4.6 x10^3/uL (2.2-4.8); PLATELET COUNT 197 X10^3/uL (150.0-450.0); RED BLOOD COUNT 4.13 X10^6/uL (3.5-5.4); RED CELL DISTRIBUTION WIDTH 16.3 % (11.6-16.5); WHITE BLOOD COUNT 8.1 X10^3/uL (3.6-10.0)
[2017-09-10 16:51] LABS: ALANINE AMINOTRANSFERASE 29 Units/L (12-78); ALBUMIN 3.4 g/dL (3.4-5.0); ALKALINE PHOSPHATASE 111 Units/L (46-116); BLOOD UREA NITROGEN 11 mg/dL (7-18); CALCIUM 7.8 mg/dL (8.5-10.1); CARBON DIOXIDE 28.5 mmol/L (21-32); CHLORIDE 105 mmol/L (98-107); COR NA(FOR HYPERGLY) 141 mmol/L (136-145); CREATININE 0.88 mg/dL (0.55-1.02); MAGNESIUM 1.8 mg/dL (1.7-2.9); SODIUM 140 mmol/L (136-145); TOTAL PROTEIN 6.9 g/dL (6.4-8.2); eGFR BLACK RACES > 60 (>60); eGFR NON BLACK RACES > 60 (>60)
[2017-09-10] MEDS: ASPIRIN PO SCH (16:55)
[2017-09-10] MEDS: PROTONIX INJ 40 MG VIAL IVP SCH (16:55)
[2017-09-10] MEDS: NS 1000 ML 1,000 ML IV SCH (16:55)
[2017-09-10] MEDS: MORPHINE SULFATE INJ 2 MG INJ IVP PRN ×2 (16:56→21:26)
[2017-09-10 16:57] LABS: ASPARTATE AMINO TRANSFERASE 11 Units/L (15-37)
[2017-09-10] MEDS ORDERED: NICOTINE PATCH TD ONE (16:58)
[2017-09-10] MEDS ORDERED: NICOTINE PATCH TD SCH (17:00)
[2017-09-10 17:03] LABS: CREATINE KINASE 38 Units/L (26-192); CREATINE KINASE MB < 1.0 ng/mL (0-4.0); TROPONIN I < 0.02 ng/mL (0-1.5)
--- NOTE | 2017-09-10 17:34 | RAD ---
HISTORY: Chest pain Study: Single view of the chest. Comparison: None. Findings: The cardiomediastinal silhouette is normal. No focal consolidations, pleural effusions or pneumothora x. Osseous structures demonstrate no acute abnormality. IMPRESSION: 1. No acute cardiopulmonary process. Reported By:
[2017-09-10 17:48] LABS: CKMB % 2.6 % (<4)
[2017-09-10 18:18] VITALS: BMI 47.3
[2017-09-10] MEDS ORDERED: AMBIEN PO PRN (21:08)
[2017-09-10] MEDS: LOVENOX INJ 40 MG SYR SC SCH (21:26)
[2017-09-10 21:32] LABS: BILIRUBIN,URINE NEGATIVE (NEGATIVE); BLOOD/HEMOGLOBIN,URINE NEGATIVE (NEGATIVE); GLUCOSE, URINE NEGATIVE (NEGATIVE); KETONES,URINE NEGATIVE (NEGATIVE); LEUKOCYTE ESTERASE ,URINE 1+ (NEGATIVE); NITRITES,URINE NEGATIVE (NEGATIVE); PROTEIN,URINE 1+ (NEGATIVE); UROBILINOGEN,URINE NORMAL (NORMAL)
[2017-09-10 21:53] LABS: APPEARANCE,URINE SLIGHTLY HAZY (CLEAR); COLOR,URINE YELLOW (YELLOW); RBC,URINE 0-2 /HPF (NONE SEEN)
[2017-09-10 21:54] LABS: BACTERIA,URINE 1+ /HPF (NEGATIVE); SQUAMOUS EPITHELIAL CELL,UR NUMEROUS /HPF (NEGATIVE)
[2017-09-10 23:03] LABS: CKMB % 2.9 % (<4); CREATINE KINASE 34 Units/L (26-192); CREATINE KINASE MB < 1.0 ng/mL (0-4.0); TROPONIN I < 0.02 ng/mL (0-1.5)
[2017-09-11] MEDS: NS 1000 ML 1,000 ML IV SCH (03:30)
[2017-09-11] MEDS: MORPHINE SULFATE INJ 2 MG INJ IVP PRN ×2 (05:43→09:41)
[2017-09-11 07:39] LABS: ALANINE AMINOTRANSFERASE 23 Units/L (12-78); ALBUMIN 2.8 g/dL (3.4-5.0); ALKALINE PHOSPHATASE 98 Units/L (46-116); ASPARTATE AMINO TRANSFERASE < 6 Units/L (15-37); BASOPHILS % (AUTO) 0.6 % (0.2-1.0); BLOOD UREA NITROGEN 14 mg/dL (7-18); CALCIUM 7.2 mg/dL (8.5-10.1); CARBON DIOXIDE 26.5 mmol/L (21-32); CHLORIDE 109 mmol/L (98-107); COR CA(FOR HYPOALB) 8.2 mg/dL (8.5-10.1); COR NA(FOR HYPERGLY) 143 mmol/L (136-145); CREATININE 0.76 mg/dL (0.55-1.02); EOSINOPHILS # (AUTO) 0.1 x10^3/uL (0.0-0.2); EOSINOPHILS % (AUTO) 1.1 % (0.9-2.9); HEMATOCRIT 38.9 % (36.0-47.0); HEMOGLOBIN 13.3 g/dL (12.0-16.0); LYMPHOCYTES # (AUTO) 2.9 X10^3/uL (1.3-2.9); LYMPHOCYTES % (AUTO) 53.7 % (21.0-51.0); MEAN CORPUSCULAR HEMOGLOBIN 34.6 pg (27.0-34.0); MEAN CORPUSCULAR HGB CONC 34.3 g/dL (33.0-35.0); MEAN CORPUSCULAR VOLUME 100.9 fL (80.0-100.0); MEAN PLATELET VOLUME 8.7 fL (7.4-11.0); MONOCYTES # (AUTO) 0.4 x10^3/uL (0.3-0.8); MONOCYTES % (AUTO) 6.8 % (0.0-13.0); NEUTROPHILS # (AUTO) 2.1 x10^3/uL (2.2-4.8); NEUTROPHILS % (AUTO) 37.8 % (42.0-75.0); PLATELET COUNT 179 X10^3/uL (150.0-450.0); RED BLOOD COUNT 3.85 X10^6/uL (3.5-5.4); RED CELL DISTRIBUTION WIDTH 15.8 % (11.6-16.5); SODIUM 143 mmol/L (136-145); WHITE BLOOD COUNT 5.5 X10^3/uL (3.6-10.0); eGFR BLACK RACES > 60 (>60); eGFR NON BLACK RACES > 60 (>60)
[2017-09-11 08:18] VITALS: BP 102/56
[2017-09-11 08:27] LABS: CHOL/HDL RATIO 5.5 (0.0-5.0); CHOLESTEROL 187 mg/dL (0-200); CKMB % 3.1 % (<4); CREATINE KINASE 32 Units/L (26-192); CREATINE KINASE MB < 1.0 ng/mL (0-4.0); HDL CHOLESTEROL 34 mg/dL (40-60); TRIGLYCERIDES 380 mg/dL (0-150); TROPONIN I < 0.02 ng/mL (0-1.5)
[2017-09-11] MEDS: ASPIRIN PO SCH (08:55)
[2017-09-11] MEDS: PROTONIX INJ 40 MG VIAL IVP SCH (08:55)
[2017-09-11] MEDS: LOVENOX INJ 40 MG SYR SC SCH (08:55)
[2017-09-11] MEDS ORDERED: ZOFRAN INJ 4 MG VIAL IVP PRN (09:30)
== END 2017-09-11 11:22 | disposition home or self-care (01) ==
LOC: UNDOADMOB 13:45 → OBS 13:45
PROVIDERS: ADMIT Internal Medicine; ATTEND Internal Medicine
DX: R07.89 Other chest pain (principal); I25.10 Atherosclerotic heart disease of native coronary artery without angina pectoris; E78.2 Mixed hyperlipidemia; K21.9 Gastro-esophageal reflux disease without esophagitis; R73.09 Other abnormal glucose; F41.8 Other specified anxiety disorders; R60.0 Localized edema; Z79.1 Long term (current) use of non-steroidal anti-inflammatories (NSAID); Z79.899 Other long term (current) drug therapy
CPT/HCPCS: 36415; 71045; 80053; 80061; 81001; 82550; 82553; 83735; 84484; 85025; 85610; 93005; 93010; 94760; A4216; A4222; C9113; G0378; J1650; J2270; J2405

== ENCOUNTER 2020-02-22 15:33 | Observation (INO) ==
[2020-02-22] MEDS ORDERED: NS 1000 ML 1,000 ML ONE (17:46)
--- NOTE | 2020-02-22 18:02 | RAD ---
CHEST, 1 VIEWHISTORY: CHEST PAINStudy: Single view of the chest.Comparison:NoneFindings:The cardiomediastinal silhouette is normal.No focal consolidations, pleural effusions or pneumothorax. Osseous structures demonstrate no acute abnormality.IMPRESSION:1. No acute cardiopulmonary process.Electronically signed by: JAVIER HUGHES (Feb 22, 2020 18:00:25)
[2020-02-22] MEDS: NS 1000 ML 1,000 ML IV SCH (18:10)
[2020-02-22] MEDS: LASIX IVP SCH (18:11)
[2020-02-22] MEDS ORDERED: LASIX ONE (18:12)
[2020-02-22 20:01] LABS: BASOPHILS # (AUTO) 0.1 X10^3/uL (0.0-0.1); BASOPHILS % (AUTO) 0.8 % (0.2-1.0); EOSINOPHILS # (AUTO) 0.1 x10^3/uL (0.0-0.2); EOSINOPHILS % (AUTO) 1.2 % (0.9-2.9); HEMATOCRIT 39.6 % (36.0-47.0); HEMOGLOBIN 13.5 g/dL (12.0-16.0); LYMPHOCYTES # (AUTO) 2.3 X10^3/uL (1.3-2.9); LYMPHOCYTES % (AUTO) 33.7 % (21.0-51.0); MEAN CORPUSCULAR HEMOGLOBIN 35.8 pg (27.0-34.0); MEAN CORPUSCULAR HGB CONC 34.1 g/dL (33.0-35.0); MEAN CORPUSCULAR VOLUME 105.2 fL (80.0-100.0); MEAN PLATELET VOLUME 8.1 fL (7.4-11.0); MONOCYTES # (AUTO) 0.6 x10^3/uL (0.3-0.8); NEUTROPHILS # (AUTO) 3.9 x10^3/uL (2.2-4.8); NEUTROPHILS % (AUTO) 56.3 % (42.0-75.0); PLATELET COUNT 194 X10^3/uL (150.0-450.0); RED BLOOD COUNT 3.76 X10^6/uL (3.5-5.4); RED CELL DISTRIBUTION WIDTH 15.8 % (11.6-16.5); WHITE BLOOD COUNT 6.9 X10^3/uL (3.6-10.0)
[2020-02-22 20:16] LABS: BLOOD UREA NITROGEN 18 mg/dL (7-18); CALCIUM 8.6 mg/dL (8.5-10.1); CARBON DIOXIDE 30.9 mmol/L (21-32); CHLORIDE 104 mmol/L (98-107); COR NA(FOR HYPERGLY) 143 mmol/L (136-145); CREATININE 0.86 mg/dL (0.55-1.02); SODIUM 142 mmol/L (136-145); TROPONIN I < 0.02 ng/mL (0-1.5); eGFR NON BLACK RACES > 60 (>60)
[2020-02-22 20:20] LABS: ALANINE AMINOTRANSFERASE 12 Units/L (12-78); ALBUMIN 3.4 g/dL (3.4-5.0); ALKALINE PHOSPHATASE 125 Units/L (46-116); ASPARTATE AMINO TRANSFERASE < 6 Units/L (15-37); CREATINE KINASE 33 Units/L (26-192); CREATINE KINASE MB < 1.0 ng/mL (0-4.0); MAGNESIUM 1.9 mg/dL (1.7-2.9); TOTAL PROTEIN 7.5 g/dL (6.4-8.2)
[2020-02-22 20:35] LABS: PLATELET MORPHOLOGY COMMENT NORMAL (NORMAL)
[2020-02-22] MEDS ORDERED: CATAPRES TAB 0.1 MG PO PRN (23:09)
[2020-02-22] MEDS ORDERED: PERCOCET TAB 5/325 MG PO PRN (23:18)
[2020-02-23 00:33] LABS: CKMB % 3.3 % (<4); CREATINE KINASE MB < 1.0 ng/mL (0-4.0); TROPONIN I < 0.02 ng/mL (0-1.5)
[2020-02-23 00:34] LABS: CREATINE KINASE 30 Units/L (26-192)
[2020-02-23] MEDS ORDERED: K-DUR TAB 20 MEQ PO ONE (00:47)
[2020-02-23] MEDS ORDERED: OxyCONTIN CR 10 MG 12-HR PO ONE (00:48)
[2020-02-23] MEDS ORDERED: PEPCID TAB 20 MG ONE (00:48)
[2020-02-23] MEDS ORDERED: PRAVACHOL PO ONE (00:49)
[2020-02-23] MEDS ORDERED: KEPPRA TAB 500 MG ONE (00:49)
[2020-02-23] MEDS ORDERED: DILANTIN CAP 100 MG EXT REL PO ONE (00:49)
[2020-02-23] MEDS: SINEquan PO SCH ×3 (01:30→23:00)
[2020-02-23] MEDS: COREG TAB 25 MG PO SCH ×4 (01:30→23:00)
[2020-02-23] MEDS: KEPPRA TAB 500 MG PO SCH ×4 (01:30→23:00)
[2020-02-23] MEDS: NEURONTIN TAB 600 MG PO SCH ×6 (01:30→23:00)
[2020-02-23] MEDS: PEPCID TAB 20 MG PO SCH ×3 (01:30→21:00)
[2020-02-23] MEDS: AMBIEN PO SCH ×3 (01:30→23:00)
[2020-02-23] MEDS: DILANTIN CAP 100 MG EXT REL PO SCH ×5 (01:30→23:00)
[2020-02-23] MEDS: COZAAR PO SCH ×4 (01:30→23:00)
[2020-02-23] MEDS: PRAVACHOL PO SCH ×3 (01:30→23:00)
[2020-02-23] MEDS: BUSPAR PO SCH ×4 (01:30→23:00)
[2020-02-23] MEDS: K-DUR TAB 20 MEQ PO SCH ×3 (02:13→23:10)
[2020-02-23] MEDS: OxyCONTIN CR 10 MG 12-HR PO SCH ×4 (02:14→23:00)
[2020-02-23] MEDS: XANAX PO PRN ×2 (02:17→14:40)
[2020-02-23 06:16] LABS: BASOPHILS # (AUTO) 0.1 X10^3/uL (0.0-0.1); BASOPHILS % (AUTO) 0.8 % (0.2-1.0); EOSINOPHILS % (AUTO) 0.6 % (0.9-2.9); HEMATOCRIT 38.9 % (36.0-47.0); HEMOGLOBIN 13.3 g/dL (12.0-16.0); LYMPHOCYTES # (AUTO) 2.2 X10^3/uL (1.3-2.9); LYMPHOCYTES % (AUTO) 32.2 % (21.0-51.0); MEAN CORPUSCULAR HGB CONC 34.3 g/dL (33.0-35.0); MEAN CORPUSCULAR VOLUME 105.1 fL (80.0-100.0); MEAN PLATELET VOLUME 8.1 fL (7.4-11.0); MONOCYTES # (AUTO) 0.5 x10^3/uL (0.3-0.8); MONOCYTES % (AUTO) 7.3 % (0.0-13.0); NEUTROPHILS % (AUTO) 59.1 % (42.0-75.0); PLATELET COUNT 202 X10^3/uL (150.0-450.0); RED CELL DISTRIBUTION WIDTH 15.7 % (11.6-16.5); WHITE BLOOD COUNT 6.8 X10^3/uL (3.6-10.0)
[2020-02-23] MEDS: NS 1000 ML 1,000 ML IV SCH ×3 (06:36→18:30)
[2020-02-23 06:43] LABS: ALANINE AMINOTRANSFERASE 26 Units/L (12-78); ALBUMIN 3.4 g/dL (3.4-5.0); ALKALINE PHOSPHATASE 120 Units/L (46-116); ASPARTATE AMINO TRANSFERASE 14 Units/L (15-37); BLOOD UREA NITROGEN 24 mg/dL (7-18); CARBON DIOXIDE 28.4 mmol/L (21-32); CHLORIDE 105 mmol/L (98-107); CHOL/HDL RATIO 4.6 (0.0-5.0); CHOLESTEROL 226 mg/dL (0-200); CKMB % 2.8 % (<4); CREATINE KINASE 36 Units/L (26-192); CREATINE KINASE MB < 1.0 ng/mL (0-4.0); CREATININE 0.91 mg/dL (0.55-1.02); HDL CHOLESTEROL 49 mg/dL (40-60); SODIUM 143 mmol/L (136-145); TRIGLYCERIDES 477 mg/dL (0-150); TROPONIN I < 0.02 ng/mL (0-1.5); eGFR NON BLACK RACES > 60 (>60)
[2020-02-23 07:05] LABS: PLATELET MORPHOLOGY COMMENT NORMAL (NORMAL)
[2020-02-23] MEDS ORDERED: MOBIC TAB 15 MG PO ONE (08:02)
[2020-02-23] MEDS ORDERED: XARELTO PO ONE (08:03)
[2020-02-23] MEDS ORDERED: ZAROXOLYN PO ONE (08:04)
[2020-02-23] MEDS: LASIX IVP SCH ×2 (08:38→17:35)
[2020-02-23] MEDS ORDERED: K-DUR TAB 20 MEQ PO SCH (09:00)
[2020-02-23] MEDS ORDERED: LASIX PO SCH ×2 (09:00→21:00)
[2020-02-23] MEDS ORDERED: XARELTO PO SCH (09:00)
[2020-02-23] MEDS ORDERED: MOBIC TAB 15 MG PO SCH (09:00)
[2020-02-23] MEDS ORDERED: ZAROXOLYN PO SCH (09:00)
[2020-02-23 09:50] LABS: BILIRUBIN,URINE NEGATIVE (NEGATIVE); BLOOD/HEMOGLOBIN,URINE NEGATIVE (NEGATIVE); GLUCOSE, URINE NEGATIVE (NEGATIVE); KETONES,URINE NEGATIVE (NEGATIVE); LEUKOCYTE ESTERASE ,URINE NEGATIVE (NEGATIVE); NITRITES,URINE NEGATIVE (NEGATIVE); PROTEIN,URINE NEGATIVE (NEGATIVE); UROBILINOGEN,URINE NORMAL (NORMAL)
[2020-02-23 09:52] LABS: APPEARANCE,URINE CLEAR (CLEAR); COLOR,URINE YELLOW (YELLOW)
[2020-02-23] MEDS ORDERED: PHENERGAN TAB 25 MG PO PRN (10:24)
[2020-02-23] MEDS ORDERED: PHENERGAN TAB 25 MG PO ONE (10:29)
[2020-02-23] MEDS ORDERED: LEVSIN/MAALOX/LIDOC VISC PO PRN (10:37)
--- NOTE | 2020-02-23 10:41 | DR.H&P ---
H&P - History & Physical for Day of: H&P Date: 02/22/20 - Chief Complaint Chief Complaint: CHEST PAIN - History of Present Illness History of Present Illness: PT IS 44WF, DIRECT ADMIT FROM DR BATES OFFICE WITH CO CHEST PAIN, INCREASED LOWER LEG SWELLING. PT HASPMH OF HTN, MO. PT REPORT SHE FAILED STRESS TEST AT [facility]. PT HAS HYPERLIPIDEMIA AND HX OF MORBID OBESITY AND HYPERLIPIDEMIA. PT ADMITTED FOR R/O AMI, TRANSFER FOR CARD IAC CATH. - Past Medical History Past Medical History: Anxiety, Arthritis, CHF, Coronary Artery Disease, Dyslipidemia, GERD, Hyperthyroidism, Seizures Additional Medical History: Multiple DVTs - Past Surgical History Surgical History: Cholecystectomy, [employer] Surgery, Hysterectomy Additional Surgical History: Cardiac Catherization - Family History Family Medical History: Hypertension - Social History Does patient currently use any type of tobacco product: No Have you used tobacco products in the last 12 months: Yes Type of Tobacco Use: Cigarettes How many years tobacco product used: 20 Does any household member use tobacco: Yes Alcohol Use: None Drug Use: Prescription Drugs - Medications Home Medications: clarithromycin Allergy (Verified 10/16/16 13:14) morphine Adverse Reaction (Verified 02/22/20 18:20) phenobarbital Adverse Reaction (Verified 02/22/20 18:20) CONTINUE taking the following medications buspirone 10 mg PO BID 02/22/20 [History] clonidine HCl 0.1 mg PO BID PRN 02/22/20 [History] doxepin 100 mg PO HS 02/22/20 [History] famotidine 20 mg PO BID 02/22/20 [History] furosemide 40 mg PO HS 02/22/20 [History] furosemide 80 mg PO DAILY 02/22/20 [History] gabapentin 1,200 mg PO HS 02/22/20 [History] melatonin 10 mg PO HS 02/22/20 [History] meloxicam 15 mg PO DAILY 02/22/20 [History] metolazone 5 mg PO DAILY 02/22/20 [History] oxycodone [OxyContin] 10 mg PO BID 02/22/20 [History] potassium chloride 40 meq PO DAILY 02/22/20 [History] promethazine 25 mg PO DAILY PRN 02/22/20 [History] - Review of Systems Constitutional: No Symptoms Reported Eyes: No Symptoms Reported ENT: No Symptoms Reported Respiratory: SOB with Excertion Cardiovascular: Chest Pain, Edema Gastrointestinal: Nausea Genitourinary: No Symptoms Reported Musculoskeletal: Back Pain, Leg Pain Skin: No Symptoms Reported Neurological: No Symptoms Reported - Physical Exam Vital Signs: Temperature 97.8 F Pulse Rate [Left Brachial] 72 Respiratory Rate 20 Blood Pressure [Right Arm] 130/76 Blood Pressure [Left Arm] 139/75 O2 Sat by Pulse Oximetry 96 Oriented: Normal Eyes: Normal Ear: Normal Nose: Normal Throat: Normal Respiratory: RLL Diminished, LLL Diminished Cardiovascular: Normal, Edema : Normal Auscultation: Bowel Sounds: Normal Palpation: Normal Tenderness: Normal Skin: Normal Musculoskeletal: Back:Thoracic, Back:Lumbar Psychiatric: Anxiety Affect: Anxious Speech Pattern: Clear, Appropriate - Assessment/Plan (1) Chest pain Status: Acute Plan: ADMIT, SERIAL CE AND EKG. VERIFY AND RESUME HOME MEDICATION. PPI THERAPY, BP CONTROL, ASPIRIN STATIN. CXR ON ADMISSION (2) Hypertension Qualifiers: Status: Chronic (3) Hyperlipidemia Status: Chronic (4) GERD (gastroesophageal reflux disease) Status: Chronic (5) History of IL (myocardial infarction) Status: Chronic (6) Mitral valve prolapse Status: Chronic - Allergies Allergies/Adverse Reactions: Allergies Allergy/AdvReac Type Severity Reaction Status Date / Time clarithromycin Allergy Verified 10/16/16 13:14 morphine AdvReac Verified 02/22/20 18:20 phenobarbital AdvReac Verified 02/22/20 18:20
[2020-02-23] MEDS ORDERED: PROTONIX INJ 40 MG VIAL IVP SCH (11:00)
[2020-02-23 13:21] VITALS: BMI 52.8
[2020-02-23] MEDS: SOMA TAB 350 MG PO PRN ×2 (14:40→23:00)
[2020-02-23] MEDS ORDERED: TORADOL 30 MG VIAL IVP PRN (17:00)
[2020-02-23] MEDS ORDERED: TORADOL 30 MG VIAL ONE (17:15)
[2020-02-23 23:30] VITALS: BP 114/61
== END 2020-02-23 23:10 | disposition short-term general hospital (02) ==
LOC: MED/SURG
PROVIDERS: ADMIT Internal Medicine; ATTEND Internal Medicine